=== PATIENT | male | born 2000 | race African-American/Black ===

== ENCOUNTER 2024-07-31 07:24 | Day surgery (SDC) | payer OTHER ==
[2024-07-31] MEDS ORDERED: Lidocaine 2% PF 5 ML VIAL ONE ×2 (07:41→09:47)
[2024-07-31] MEDS ORDERED: Bupivacaine PF 0.5% 30 ML VIAL ONE (07:41)
[2024-07-31] MEDS ORDERED: PROPOFOL 20 ML ONE (07:41)
[2024-07-31] MEDS ORDERED: fentaNYL 50 mcg/mL 1 mL Vial ONE (07:41)
[2024-07-31] MEDS ORDERED: Acetaminophen 500 MG TAB ONE (08:38)
[2024-07-31] MEDS ORDERED: CEFAZOLIN 2 GM VIAL ONE (09:45)
[2024-07-31] MEDS ORDERED: PROPOFOL 40 ML ONE (09:46)
[2024-07-31] MEDS ORDERED: fentaNYL PF 100 MCG/2 ML SYRINGE ONE (09:46)
[2024-07-31] MEDS ORDERED: Dexamethasone 20 MG/5 ML VIAL ONE (10:10)
[2024-07-31] MEDS ORDERED: ePHEDrine Sulfate 50 MG/10 ML VIAL ONE (10:17)
[2024-07-31] MEDS ORDERED: Ondansetron PF 4 MG/2 ML Vial ONE (10:32)
[2024-07-31] MEDS ORDERED: Ketorolac Tromethamine 30 MG (1 mL) VIAL ONE (10:32)
== END 2024-07-31 12:30 | disposition home or self-care (01) ==
LOC: SDC 07:24
PROVIDERS: ATTEND Orthopaedic Surgery
PROC: 0SBC4ZZ Excision of Right Knee Joint, Percutaneous Endoscopic Approach (ICD-10-PCS; principal; 2024-07-31)
PROC: 3E0T3BZ Introduction of Anesthetic Agent into Peripheral Nerves and Plexi, Percutaneous Approach (ICD-10-PCS; principal; 2024-07-31)
DX: M89.8X5 Other specified disorders of bone, thigh (principal); M24.08 Loose body, other site
CPT/HCPCS: J0665; J1100; J1885; J2405; J2704; J3010